=== PATIENT | male | born 1995 ===

== ENCOUNTER 2017-03-28 22:30 | Observation (INO) ==
[2017-03-28] MEDS ORDERED: DEXAMETHASONE 10 MG/1 ML VIAL IV STA (23:16)
[2017-03-28] MEDS ORDERED: AMPICILLIN/SULBACTAM 3,000 MG in SODIUM CHLORIDE 0.9% 100 ML IV STA (23:17)
[2017-03-28] MEDS ORDERED: KETOROLAC 30 MG/1 ML VIAL IV PRN (23:17)
[2017-03-28] MEDS ORDERED: ACETAMINOPHEN 325 MG TABLET PO PRN (23:17)
[2017-03-28] MEDS ORDERED: ONDANSETRON 4 MG/2 ML VIAL IV PRN (23:17)
[2017-03-28] MEDS ORDERED: AMPICILLIN/SULBACTAM 3,000 MG VIAL ONE (23:32)
[2017-03-28] MEDS ORDERED: DEXAMETHASONE 10 MG/1 ML VIAL ONE (23:32)
[2017-03-29] MEDS ORDERED: INFLUENZA VIRUS VACCINE 0.5 ML SYRINGE IM ONE (00:55)
[2017-03-29] MEDS: DEXTROSE 5% NACL 0.45% 1,000 ML IV SCH ×4 (02:30→23:17)
[2017-03-29] MEDS: AMPICILLIN/SULBACTAM 3,000 MG in SODIUM CHLORIDE 0.9% 100 ML IV SCH ×4 (06:04→23:17)
[2017-03-29] MEDS: DEXAMETHASONE 4 MG/1 ML VIAL IV SCH ×4 (06:04→23:18)
[2017-03-29] MEDS ORDERED: PANTOPRAZOLE 40 MG TABLET PO SCH (09:00)
[2017-03-29] MEDS ORDERED: OXYMETAZOLINE 0.05% NASAL SPRAY 15 ML BOTTLE ONE (10:49)
[2017-03-29] MEDS ORDERED: ONDANSETRON 4 MG/2 ML VIAL IV PRN (11:04)
[2017-03-29] MEDS ORDERED: ONDANSETRON 4 MG/2 ML VIAL ONE (11:21)
[2017-03-29] MEDS ORDERED: DEXAMETHASONE 10 MG/1 ML VIAL ONE (11:21)
[2017-03-29] MEDS ORDERED: fentaNYL 100 MCG/2 ML VIAL ONE (11:21)
[2017-03-29] MEDS ORDERED: PROPOFOL 200 MG/20 ML VIAL IV ONE (11:21)
[2017-03-29] MEDS ORDERED: SEVOFLURANE 1 UNIT/15 MINUTE INH ONE (11:21)
[2017-03-29] MEDS ORDERED: GLYCOPYRROLATE 0.4 MG/2 ML VIAL ONE (11:21)
[2017-03-29] MEDS ORDERED: ACETAMINOPHEN 1,000 MG/100 ML VIAL IV ONE (11:22)
[2017-03-29] MEDS ORDERED: SUCCINYLCHOLINE 200 MG/10 ML VIAL ONE (11:22)
[2017-03-29] MEDS ORDERED: ROCURONIUM 100 MG/10 ML VIAL IV ONE (11:22)
[2017-03-29] MEDS: HYDROcod/ACETAMIN 7.5-325 MG/15 ML UDCUP PO PRN (13:00)
[2017-03-29] MEDS ORDERED: MORPHINE 10 MG/1 ML VIAL IV PRN (17:38)
[2017-03-29] MEDS ORDERED: MORPHINE 2 MG/1 ML SYRINGE IV PRN (17:38)
[2017-03-30] MEDS: DEXAMETHASONE 4 MG/1 ML VIAL IV SCH ×2 (05:16→12:45)
[2017-03-30] MEDS: AMPICILLIN/SULBACTAM 3,000 MG in SODIUM CHLORIDE 0.9% 100 ML IV SCH ×2 (05:16→12:51)
[2017-03-30] MEDS: DEXTROSE 5% NACL 0.45% 1,000 ML IV SCH (09:12)
[2017-03-30] MEDS: HYDROcod/ACETAMIN 7.5-325 MG/15 ML UDCUP PO PRN (12:40)
[2017-03-30 13:02] VITALS: BP 139/85
== END 2017-03-30 16:17 | disposition home or self-care (01) ==
LOC: EDBD → EDUNIT# → N.EDINP 22:30 → N.ED 22:30 → N.3E 23:39
PROVIDERS: ADMIT Otolaryngology; ATTEND Otolaryngology